=== PATIENT | female | born 1965 | race Two or more races ===

== ENCOUNTER 2020-07-04 21:30 | Observation (INO) | payer MEDICARE, OTHER ==
[~2020-07-04] VITALS: Ht 152.4 cm; Wt 47.3 kg
[2020-07-04 21:58] LABS: BASO % 0 % (0-3); EOS # 0.1 x10^3/uL (0.0-0.7); EOS % 1 % (0-3); HEMOGLOBIN 13.3 g/dL (12.0-15.5); LYMPH # 1.9 x10^3/uL (1.0-4.8); LYMPH % 16 % (24-48); MEAN CORPUSCULAR HEMOGLOBIN 29 pg (25-35); MEAN CORPUSCULAR HGB CONC 33 g/dL (31-37); MEAN CORPUSCULAR VOLUME 87 fL (79-100); MONO # 0.9 x10^3/uL (0.0-1.1); MONO % 8 % (0-9); NEUT # 8.9 x10^3/uL (1.8-7.7); NEUT % 75 % (31-73); PLATELET COUNT 269 x10^3/uL (140-400); RED CELL DISTRIBUTION WIDTH 16.5 % (11.5-14.5); WHITE BLOOD COUNT 11.8 x10^3/uL (4.0-11.0)
[2020-07-04 22:03] LABS: BILIRUBIN,URINE NEGATIVE (NEG); CLARITY,URINE CLEAR; COLOR,URINE YELLOW; NITRITE,URINE NEGATIVE (NEG); PROTEIN,URINE 30 mg/dL (NEG-TRACE); UROBILINOGEN,URINE 0.2 mg/dL (0.2 mg/dL)
[2020-07-04 22:09] LABS: BARBITURATES NEG (NEG); BENZODIAZEPINES NEG (NEG); CANNABINOIDS NEG (NEG); COCAINE NEG (NEG); METHADONE NEG (NEG); OPIATES NEG (NEG); PHENCYCLIDINE NEG (NEG)
[2020-07-04 22:12] LABS: BACTERIA,URINE FEW /HPF (0-FEW)
[2020-07-04 22:14] LABS: ALBUMIN/GLOBULIN RATIO 0.8 (1.0-1.7); CALCIUM 8.8 mg/dL (8.5-10.1); CREATININE 0.9 mg/dL (0.6-1.0); GFR 64.5; TOTAL BILIRUBIN 0.3 mg/dL (0.2-1.0); TOTAL PROTEIN 6.7 g/dL (6.4-8.2)
[2020-07-04 22:16] LABS: AMPHETAMINE/METHAMPHETAMINE POS (NEG)
[2020-07-04 22:19] LABS: PROTHROMBIN TIME PATIENT 11.4 SEC (11.7-14.0)
--- NOTE | 2020-07-04 22:20 | RAD ---
CT head without contrast dated 07/04/2020. No comparison available. CLINICAL INDICATION: Confusion. TECHNIQUE: Contiguous axial imaging the head was performed from skull base to vertex. No contrast administered. One or more of the following individualized dose reduction techniques were utilized for this examination: 1. Automated exposure control 2. Adjustment of the mA and/or kV according to patient size 3. Use of iterative reconstruction technique. FINDINGS: Ventricles and sulci are within normal limits for age. No midline shift or mass effect. Brain parenchyma is of normal attenuation. No hemorrhage or extra-axial collection. Posterior fossa and brainstem unremarkable. Mild mucosal thickening of the ethmoid air cells. Complete opacification of the left mastoid air cells. No acute calvarial abnormality. IMPRESSION: 1. No evidence of acute intracranial hemorrhage or mass. 2. Complete opacification of the left mastoid air cells, nonspecific. Consider acute or chronic mastoiditis. Electronically signed by: Erasmo Greenberg MD (07/04/2020 10:16 PM) [facility]
--- NOTE | 2020-07-04 22:21 | RAD ---
Single view chest dated 07/04/2020: No comparison available. Clinical Indication: Altered mental status. Findings: Single upright portable exam of the chest was performed. Heart size and mediastinal contours are within normal limits given technique. There are some prominent linear markings at the perihilar regions. A more focal area of consolidation in the medial right upper lobe. No apparent pleural effusion. No pneumothorax. Impression:: There is some asymmetric increased density in the right upper lobe which could be related to overlapping bony structures or mass or infiltrate. Suggest a PA and lateral exam for better evaluation. Electronically signed by: Erasmo Greenberg MD (07/04/2020 10:18 PM) [facility]
[2020-07-04] MEDS ORDERED: IV NORMAL SALINE 1000ML BAG 1,000 ML IV ONE ×2 (22:30→23:30)
[2020-07-04] MEDS ORDERED: UNABLE MC (22:32)
[2020-07-04] MEDS ORDERED: NALOXONE 0.4 MG/ML VIAL. IV ONE (22:45)
[2020-07-04] MEDS ORDERED: POTASSIUM CHLORIDE 20MEQ 100 ML IV ONE (23:15)
[2020-07-05] VITALS (7 sets, daily range): BP systolic 83–121; BP diastolic 50–99
--- NOTE | 2020-07-05 00:31 | PHYS DOC ---
Past Medical History Past Medical History: Cancer, Diabetes-Type II Additional Past Medical Histor: LUNG CANCER Past Surgical History: Other Additional Past Surgical Histo: LEFT PARTIAL FOOT AMPUTATION Smoking Status: Unknown if ever smoked Alcohol Use: None Additional Information: DENIES PER FAMILY Social History Narrative: DENIES PER FAMILY General Adult EDM: Chief Complaint: ALTERED MENTAL STATUS HPI: HPI: Patient is 55-year-old female who presents to the emergency room unresponsive. She is unable to provide history. According to EMS her son and seen her 15 minutes prior and then found her passed out in her room. She did have a glucose of 60 upon EMS arrival and they gave her D10. Review of Systems: Review of Systems: Unable to obtain Heart Score: Risk Factors: Risk Factors: DM, Current or recent (<one month) smoker, HTN, HLP, family history of CAD, obesity. Risk Scores: Score 0 - 3: 2.5% MACE over next 6 weeks - Discharge Home Score 4 - 6: 20.3% MACE over next 6 weeks - Admit for Clinical Observation Score 7 - 10: 72.7% MACE over next 6 weeks - Early Invasive Strategies Current Medications: Current Medications Medications (Trade) Dose Ordered Sig/Wyatt Start Time Stop Time Status Last Admin Dose Admin Naloxone HCl (Narcan) 1 mg 1X ONCE 07/04/20 22:45 07/04/20 23:06 DC 07/04/20 21:42 1 MG Potassium Chloride/Water 100 ml @ 50 mls/hr 1X ONCE 07/04/20 23:15 07/05/20 01:14 07/04/20 23:56 50 MLS/HR Sodium Chloride 1,000 ml @ 1,000 mls/hr 1X ONCE 07/04/20 23:30 07/05/20 00:29 07/04/20 23:56 1,000 MLS/HR Allergies: Allergies: Allergies Coded Allergies Type Severity Reaction Last Updated Verified Unable to Assess 07/04/20 No Physical Exam: PE: General: Unresponsive. Well Nourished. Cooperative HEENT: Atraumatic, EOMI, PERRL, airway patent, dry oral mucosa Neck: Supple, trachea midline Respiratory: CTA bilaterally, normal effort, no wheezing/crackles CV: RRR, no murmur, cap refill <2 GI: Soft, nondistended, nontender, no masses MSK: No obvious deformities Skin: Warm, dry, intact Neuro: GCS 7, moves all extremities to pain Current Patient Data: Labs: Laboratory Tests Test 07/04/20 21:41 07/04/20 21:52 07/04/20 22:43 White Blood Count 11.8 x10^3/uL (4.0-11.0) H Red Blood Count 4.60 x10^6/uL (3.50-5.40) Hemoglobin 13.3 g/dL (12.0-15.5) Hematocrit 40.0 % (36.0-47.0) Mean Corpuscular Volume 87 fL (79-100) Mean Corpuscular Hemoglobin 29 pg (25-35) Mean Corpuscular Hemoglobin Concent 33 g/dL (31-37) Red Cell Distribution Width 16.5 % (11.5-14.5) H Platelet Count 269 x10^3/uL (140-400) Neutrophils (%) (Auto) 75 % (31-73) H Lymphocytes (%) (Auto) 16 % (24-48) L Monocytes (%) (Auto) 8 % (0-9) Eosinophils (%) (Auto) 1 % (0-3) Basophils (%) (Auto) 0 % (0-3) Neutrophils # (Auto) 8.9 x10^3/uL (1.8-7.7) H Lymphocytes # (Auto) 1.9 x10^3/uL (1.0-4.8) Monocytes # (Auto) 0.9 x10^3/uL (0.0-1.1) Eosinophils # (Auto) 0.1 x10^3/uL (0.0-0.7) Basophils # (Auto) 0.0 x10^3/uL (0.0-0.2) Prothrombin Time 11.4 SEC (11.7-14.0) L Prothrombin Time INR 0.9 (0.8-1.1) Sodium Level 135 mmol/L (136-145) L Potassium Level 2.0 mmol/L (3.5-5.1) *L Chloride Level 95 mmol/L (98-107) L Carbon Dioxide Level 40 mmol/L (21-32) H Anion Gap 0 (6-14) L Blood Urea Nitrogen 36 mg/dL (7-20) H Creatinine 0.9 mg/dL (0.6-1.0) Estimated GFR (Cockcroft-Gault) 64.5 BUN/Creatinine Ratio 40 (6-20) H Glucose Level 181 mg/dL (70-99) H Lactic Acid Level 2.5 mmol/L (0.4-2.0) H Calcium Level 8.8 mg/dL (8.5-10.1) Total Bilirubin 0.3 mg/dL (0.2-1.0) Aspartate Amino Transferase (AST) 18 U/L (15-37) Alanine Aminotransferase (ALT) 18 U/L (14-59) Alkaline Phosphatase 135 U/L (46-116) H Troponin I Quantitative < 0.017 ng/mL (0.000-0.055) Total Protein 6.7 g/dL (6.4-8.2) Albumin 3.0 g/dL (3.4-5.0) L Albumin/Globulin Ratio 0.8 (1.0-1.7) L Ethyl Alcohol Level < 10 mg/dL (0-10) Urine Collection Type Unknown Urine Color Yellow Urine Clarity Clear Urine pH 7.0 (<5.0-8.0) Urine Specific [place] 1.010 (1.000-1.030) Urine Protein 30 mg/dL (NEG-TRACE) Urine Glucose (UA) 250 mg/dL (NEG) Urine Ketones (Stick) Negative mg/dL (NEG) Urine Blood Negative (NEG) Urine Nitrite Negative (NEG) Urine Bilirubin Negative (NEG) Urine Urobilinogen Dipstick 0.2 mg/dL (0.2 mg/dL) Urine Leukocyte Esterase Negative (NEG) Urine RBC 1-2 /HPF (0-2) Urine WBC 1-4 /HPF (0-4) Urine Squamous Epithelial Cells Few /LPF Urine Bacteria Few /HPF (0-FEW) Urine Mucus Slight /LPF Glucose (Fingerstick) 228 mg/dL (70-99) H 223 mg/dL (70-99) H Urine Opiates Screen Neg (NEG) Urine Methadone Screen Neg (NEG) Urine Barbiturates Neg (NEG) Urine Phencyclidine Screen Neg (NEG) Urine Amphetamine/Methamphetamine Pos (NEG) Urine Benzodiazepines Screen Neg (NEG) Urine Cocaine Screen Neg (NEG) Urine Cannabinoids Screen Neg (NEG) Urine Ethyl Alcohol Neg (NEG) Laboratory Tests 07/04/20 21:41 Laboratory Tests 07/04/20 21:41 Vital Signs: Vital Signs Date Time Temp Pulse Resp B/P (MAP) Pulse Ox O2 Delivery O2 Flow Rate FiO2 07/04/20 23:45 72 12 98 07/04/20 21:31 97.5 128/67 (87) Room Air 97.5 EKG: EKG: [] Radiology/Procedures: Radiology/Procedures: [] Course & Med Decision Making: Course & Med Decision Making Pertinent Labs and Imaging studies reviewed. (See chart for details) Patient is a 55-year-old female with a history of lung cancer who presents to the Emergency Room with altered mental status. On exam, patient has a GCS of 7, intermittently moves all extremities to pain. At this time it is unclear what is causing the patient's altered mental status, however they do not appear to be at their baseline. Differential includes infection, electrolyte imbalance, ACS, stroke, intracranial bleed, polypharmacy, dehydration, dementia, renal failure, drug abuse. Patient does not have hypo-or hyperthermia. No history was provided to suggest seizure with postictal state. Glucose is high upon arrival. At arrival, patient is protecting their airway and does not need to be intubated. There are signs of trauma, however they appear to be several days old. To evaluate the patient's altered mental status, CBC, CMP, UA, troponin, EKG, CT head, drug screen will be ordered. Patient was given Narcan with no response Dragon Disclaimer: Dragon Disclaimer: This electronic medical record was generated, in whole or in part, using a voice recognition dictation system. Departure Departure Impression: Primary Impression: Altered mental status Additional Impression: Hypoglycemia Disposition: ADMITTED INPATIENT Condition: IMPROVED Referrals: NO PCP (PCP) CARLOS MANUEL MAC MD Jul 05, 2020 00:31
[2020-07-05] MEDS ORDERED: NALOXONE 2 MG/2 ML DISP.SYRIN. ONE (02:21)
--- NOTE | 2020-07-05 02:30 | NUR ---
Admit from ED to orth room 206. Alert on arrival to floor. Pleasant. Cooperative. Answers questions appropriately. Orientated to room and POC to include not to get out of bed without assist. Verbalized understanding. Patient reports she uses [facility] on [address] but can not tell me what meds she takes and is poor historian as well. Has Allan Cath in place but explains she uses walker or wheelchair for mobility at home and to go to the restroom. Resting in bed with call light at hand. Bed alarm on.
--- NOTE | 2020-07-05 07:32 | NUR ---
More alert this morning. Diabetic foot ulcer noted to left heel. Patient explains that wound care comes to her home 2 days a week. Photo taken of wound. Cleaned with wound wash and dressed wound with Vaseline gauze secured with an island dressing.
[2020-07-05 09:37] LABS: BASO % 1 % (0-3); EOS # 0.1 x10^3/uL (0.0-0.7); EOS % 2 % (0-3); HEMATOCRIT 39.8 % (36.0-47.0); HEMOGLOBIN 13.5 g/dL (12.0-15.5); LYMPH % 25 % (24-48); MEAN CORPUSCULAR HEMOGLOBIN 30 pg (25-35); MEAN CORPUSCULAR HGB CONC 34 g/dL (31-37); MEAN CORPUSCULAR VOLUME 88 fL (79-100); MONO # 0.7 x10^3/uL (0.0-1.1); MONO % 8 % (0-9); NEUT % 64 % (31-73); PLATELET COUNT 284 x10^3/uL (140-400); RED BLOOD COUNT 4.53 x10^6/uL (3.50-5.40); WHITE BLOOD COUNT 7.9 x10^3/uL (4.0-11.0)
[2020-07-05 09:53] LABS: ALBUMIN 2.6 g/dL (3.4-5.0); ALBUMIN/GLOBULIN RATIO 0.7 (1.0-1.7); CALCIUM 8.6 mg/dL (8.5-10.1); CREATININE 0.8 mg/dL (0.6-1.0); GFR 73.9; TOTAL BILIRUBIN 0.5 mg/dL (0.2-1.0); TOTAL PROTEIN 6.1 g/dL (6.4-8.2)
[2020-07-05 09:59] LABS: POTASSIUM 2.6 mmol/L (3.5-5.1)
[2020-07-05] MEDS ORDERED: POTASSIUM CHLORIDE 20 MEQ TABLET.ER. PO ONE ×2 (10:15→12:00)
[2020-07-05] MEDS ORDERED: CHOL500021 PO (10:37)
[2020-07-05] MEDS ORDERED: INSU100V6 SQ (10:37)
[2020-07-05] MEDS ORDERED: BUME2TAB3 PO (10:37)
[2020-07-05] MEDS ORDERED: MIDO2.5T PO (10:37)
[2020-07-05] MEDS ORDERED: LEVO88TA4 PO (10:37)
[2020-07-05] MEDS ORDERED: GABA-585 PO (10:37)
[2020-07-05] MEDS ORDERED: INSU100I13 SQ (10:37)
[2020-07-05] MEDS ORDERED: ATOR40TA59 PO (10:37)
--- NOTE | 2020-07-05 11:55 | PDOC1 ---
History and Physical Date of Admission Date of Admission 07/05/2020 Identification/Chief Complaint Chief Complaint Altered mental status Source Source: Chart review, Patient History of Present Illness History of Present Illness Patient is a 55-year-old female with past medical history of diabetes type 2 lung cancer left partial foot amputation who apparently was brought to the emergency department by her son who found her passed out in her room. The patient had a recorded glucose of 60 on the field and was given D10.By the time she came to the emergency department her glucose was 181. Patient initially had a GCS of 7 according to the ER physician's note and given that the patient despite the D10 and resolved hypoglycemia was still exhibiting altered mental status she was admitted to her service for further evaluation and treatment. The patient has a left periorbital ecchymosis that is a consequence of a fall that she suffered due to her instability. The patient was assessed by her home nurse and made her primary care physician aware of this event. According to the ER physician notes there seems to be signs of trauma they documented which is consistent with the fall that she suffered. At the time of my note the patient is in no acute distress neurologically intact patient is complaining of pain all over most likely a consequence of her mechanical fall fortunately no she did not suffer any fractures Upon review of her work-up in the emergency department there was a question of an infiltrate on her x-ray which we are going to repeat with a PA and lateral, the patient nevertheless does not give a history compatible with pneumonic process. She has not had pleurisy no fever no sick contacts and the patient has had an increasing cough which is dry secondary to her longstanding history of smoking which she is trying to quit. Reassurance has been provided and all of her concerns were addressed to the best of my abilities patient present time is in no acute distress, plan of care explained in detail. Past Medical History Endocrine: Diabetes Past Surgical History Past Surgical History: Other (Partial left foot amputation) Family History Family History: No Significant Social History Smoke: # pack years (At least 25) ALCOHOL: none Drugs: None Current Problem List Problem List Problems Medical Problems: (1) Altered mental status Status: Acute (2) Hypoglycemia Status: Acute Current Medications Current Medications Current Medications Medications (Trade) Dose Ordered Sig/Wyatt Start Time Stop Time Status Last Admin Dose Admin Atorvastatin Calcium (Lipitor) 40 mg QHS 07/05/20 21:00 Bumetanide (Bumex) 4 mg [id number] 07/05/20 18:00 Ergocalciferol (Vitamin D2) 50,000 unit WEEKLY 07/12/20 09:00 Gabapentin (Neurontin) 100 mg TID 07/05/20 14:00 Insulin Human Lispro (HumaLOG) 10 units [id number] 07/05/20 12:00 Levothyroxine Sodium (Synthroid) 88 mcg [id number] 07/06/20 06:00 Midodrine (Proamatine) 2.5 mg [id number] 07/05/20 16:00 Naloxone HCl (NARCAN 2mg SYRINGE) 2 mg STK-MED ONCE 07/05/20 02:21 07/05/20 02:22 DC Naloxone HCl (Narcan) 1 mg 1X ONCE 07/04/20 22:45 07/04/20 23:06 DC 07/04/20 21:42 1 MG Potassium Chloride/Water 100 ml @ 50 mls/hr 1X ONCE 07/04/20 23:15 07/05/20 01:14 DC 07/04/20 23:56 50 MLS/HR Potassium Chloride (Klor-Con) 20 meq 1X ONCE 07/05/20 12:00 07/05/20 12:01 Sodium Chloride 1,000 ml @ 1,000 mls/hr 1X ONCE 07/04/20 23:30 07/05/20 00:29 DC 07/04/20 23:56 1,000 MLS/HR Allergies Allergies Allergies Coded Allergies Type Severity Reaction Last Updated Verified Unable to Assess 07/04/20 No ROS Review of System CONSTITUTIONAL: No fever or chills EYES: No recent changes SKIN: No rash or itching CARDIOVASCULAR: No chest pain, syncope, palpitations, or edema RESPIRATORY: No SOB or cough GASTROINTESTINAL: No nausea, vomiting or abdominal pain NEUROLOGICAL: No headaches or weakness ENDOCRINE: No cold or heat intolerance GENITOURINARY: No urgency or frequency of urination MUSCULOSKELETAL: No back pain or joint pain LYMPHATICS: No enlarged lymph nodes PSYCHIATRIC: No anxiety or depression Physical Exam Physical Exam GEN.: No apparent distress. Alert and oriented. HEENT: Head is normocephalic, atraumatic NECK: Supple. LUNGS: Clear to auscultation. HEART: RRR, S1, S2 present. Peripheral pulses intact ABDOMEN: Soft, nontender. Positive bowel sounds. EXTREMITIES: Without any cyanosis. NEUROLOGIC: Normal speech, normal tone PSYCHIATRIC: Normal affect, normal mood. SKIN: No ulcerations Vitals Vitals Vital Signs Date Time Temp Pulse Resp B/P (MAP) Pulse Ox O2 Delivery O2 Flow Rate FiO2 07/05/20 10:33 98.8 83 99/60 (73) 96 Room Air 98.8 07/05/20 08:00 2.0 07/05/20 07:00 20 Labs Labs Laboratory Tests Test 07/04/20 21:41 07/04/20 21:52 07/04/20 22:43 07/05/20 08:08 White Blood Count 11.8 x10^3/uL (4.0-11.0) Red Blood Count 4.60 x10^6/uL (3.50-5.40) Hemoglobin 13.3 g/dL (12.0-15.5) Hematocrit 40.0 % (36.0-47.0) Mean Corpuscular Volume 87 fL (79-100) Mean Corpuscular Hemoglobin 29 pg (25-35) Mean Corpuscular Hemoglobin Concent 33 g/dL (31-37) Red Cell Distribution Width 16.5 % (11.5-14.5) Platelet Count 269 x10^3/uL (140-400) Neutrophils (%) (Auto) 75 % (31-73) Lymphocytes (%) (Auto) 16 % (24-48) Monocytes (%) (Auto) 8 % (0-9) Eosinophils (%) (Auto) 1 % (0-3) Basophils (%) (Auto) 0 % (0-3) Neutrophils # (Auto) 8.9 x10^3/uL (1.8-7.7) Lymphocytes # (Auto) 1.9 x10^3/uL (1.0-4.8) Monocytes # (Auto) 0.9 x10^3/uL (0.0-1.1) Eosinophils # (Auto) 0.1 x10^3/uL (0.0-0.7) Basophils # (Auto) 0.0 x10^3/uL (0.0-0.2) Prothrombin Time 11.4 SEC (11.7-14.0) Prothromb Time International Ratio 0.9 (0.8-1.1) Sodium Level 135 mmol/L (136-145) Potassium Level 2.0 mmol/L (3.5-5.1) Chloride Level 95 mmol/L (98-107) Carbon Dioxide Level 40 mmol/L (21-32) Anion Gap 0 (6-14) Blood Urea Nitrogen 36 mg/dL (7-20) Creatinine 0.9 mg/dL (0.6-1.0) Estimated GFR (Cockcroft-Gault) 64.5 BUN/Creatinine Ratio 40 (6-20) Glucose Level 181 mg/dL (70-99) Lactic Acid Level 2.5 mmol/L (0.4-2.0) Calcium Level 8.8 mg/dL (8.5-10.1) Total Bilirubin 0.3 mg/dL (0.2-1.0) Aspartate Amino Transf (AST/SGOT) 18 U/L (15-37) Alanine Aminotransferase (ALT/SGPT) 18 U/L (14-59) Alkaline Phosphatase 135 U/L (46-116) Troponin I Quantitative < 0.017 ng/mL (0.000-0.055) Total Protein 6.7 g/dL (6.4-8.2) Albumin 3.0 g/dL (3.4-5.0) Albumin/Globulin Ratio 0.8 (1.0-1.7) Ethyl Alcohol Level < 10 mg/dL (0-10) Urine Collection Type Unknown Urine Color Yellow Urine Clarity Clear Urine pH 7.0 (<5.0-8.0) Urine Specific [place] 1.010 (1.000-1.030) Urine Protein 30 mg/dL (NEG-TRACE) Urine Glucose (UA) 250 mg/dL (NEG) Urine Ketones (Stick) Negative mg/dL (NEG) Urine Blood Negative (NEG) Urine Nitrite Negative (NEG) Urine Bilirubin Negative (NEG) Urine Urobilinogen Dipstick 0.2 mg/dL (0.2 mg/dL) Urine Leukocyte Esterase Negative (NEG) Urine RBC 1-2 /HPF (0-2) Urine WBC 1-4 /HPF (0-4) Urine Squamous Epithelial Cells Few /LPF Urine Bacteria Few /HPF (0-FEW) Urine Mucus Slight /LPF Glucose (Fingerstick) 228 mg/dL (70-99) 223 mg/dL (70-99) 279 mg/dL (70-99) Urine Opiates Screen Neg (NEG) Urine Methadone Screen Neg (NEG) Urine Barbiturates Neg (NEG) Urine Phencyclidine Screen Neg (NEG) Urine Amphetamine/Methamphetamine Pos (NEG) Urine Benzodiazepines Screen Neg (NEG) Urine Cocaine Screen Neg (NEG) Urine Cannabinoids Screen Neg (NEG) Urine Ethyl Alcohol Neg (NEG) Test 07/05/20 09:15 White Blood Count 7.9 x10^3/uL (4.0-11.0) Red Blood Count 4.53 x10^6/uL (3.50-5.40) Hemoglobin 13.5 g/dL (12.0-15.5) Hematocrit 39.8 % (36.0-47.0) Mean Corpuscular Volume 88 fL (79-100) Mean Corpuscular Hemoglobin 30 pg (25-35) Mean Corpuscular Hemoglobin Concent 34 g/dL (31-37) Red Cell Distribution Width 17.0 % (11.5-14.5) Platelet Count 284 x10^3/uL (140-400) Neutrophils (%) (Auto) 64 % (31-73) Lymphocytes (%) (Auto) 25 % (24-48) Monocytes (%) (Auto) 8 % (0-9) Eosinophils (%) (Auto) 2 % (0-3) Basophils (%) (Auto) 1 % (0-3) Neutrophils # (Auto) 5.0 x10^3/uL (1.8-7.7) Lymphocytes # (Auto) 2.0 x10^3/uL (1.0-4.8) Monocytes # (Auto) 0.7 x10^3/uL (0.0-1.1) Eosinophils # (Auto) 0.1 x10^3/uL (0.0-0.7) Basophils # (Auto) 0.0 x10^3/uL (0.0-0.2) Sodium Level 139 mmol/L (136-145) Potassium Level 2.6 mmol/L (3.5-5.1) Chloride Level 100 mmol/L (98-107) Carbon Dioxide Level 35 mmol/L (21-32) Anion Gap 4 (6-14) Blood Urea Nitrogen 24 mg/dL (7-20) Creatinine 0.8 mg/dL (0.6-1.0) Estimated GFR (Cockcroft-Gault) 73.9 BUN/Creatinine Ratio 30 (6-20) Glucose Level 282 mg/dL (70-99) Lactic Acid Level 1.4 mmol/L (0.4-2.0) Calcium Level 8.6 mg/dL (8.5-10.1) Magnesium Level 1.9 mg/dL (1.8-2.4) Total Bilirubin 0.5 mg/dL (0.2-1.0) Aspartate Amino Transf (AST/SGOT) 15 U/L (15-37) Alanine Aminotransferase (ALT/SGPT) 14 U/L (14-59) Alkaline Phosphatase 135 U/L (46-116) Total Protein 6.1 g/dL (6.4-8.2) Albumin 2.6 g/dL (3.4-5.0) Albumin/Globulin Ratio 0.7 (1.0-1.7) Laboratory Tests Test 07/04/20 21:41 07/04/20 21:52 07/04/20 22:43 07/05/20 08:08 White Blood Count 11.8 x10^3/uL (4.0-11.0) Red Blood Count 4.60 x10^6/uL (3.50-5.40) Hemoglobin 13.3 g/dL (12.0-15.5) Hematocrit 40.0 % (36.0-47.0) Mean Corpuscular Volume 87 fL (79-100) Mean Corpuscular Hemoglobin 29 pg (25-35) Mean Corpuscular Hemoglobin Concent 33 g/dL (31-37) Red Cell Distribution Width 16.5 % (11.5-14.5) Platelet Count 269 x10^3/uL (140-400) Neutrophils (%) (Auto) 75 % (31-73) Lymphocytes (%) (Auto) 16 % (24-48) Monocytes (%) (Auto) 8 % (0-9) Eosinophils (%) (Auto) 1 % (0-3) Basophils (%) (Auto) 0 % (0-3) Neutrophils # (Auto) 8.9 x10^3/uL (1.8-7.7) Lymphocytes # (Auto) 1.9 x10^3/uL (1.0-4.8) Monocytes # (Auto) 0.9 x10^3/uL (0.0-1.1) Eosinophils # (Auto) 0.1 x10^3/uL (0.0-0.7) Basophils # (Auto) 0.0 x10^3/uL (0.0-0.2) Prothrombin Time 11.4 SEC (11.7-14.0) Prothromb Time International Ratio 0.9 (0.8-1.1) Sodium Level 135 mmol/L (136-145) Potassium Level 2.0 mmol/L (3.5-5.1) Chloride Level 95 mmol/L (98-107) Carbon Dioxide Level 40 mmol/L (21-32) Anion Gap 0 (6-14) Blood Urea Nitrogen 36 mg/dL (7-20) Creatinine 0.9 mg/dL (0.6-1.0) Estimated GFR (Cockcroft-Gault) 64.5 BUN/Creatinine Ratio 40 (6-20) Glucose Level 181 mg/dL (70-99) Lactic Acid Level 2.5 mmol/L (0.4-2.0) Calcium Level 8.8 mg/dL (8.5-10.1) Total Bilirubin 0.3 mg/dL (0.2-1.0) Aspartate Amino Transf (AST/SGOT) 18 U/L (15-37) Alanine Aminotransferase (ALT/SGPT) 18 U/L (14-59) Alkaline Phosphatase 135 U/L (46-116) Troponin I Quantitative < 0.017 ng/mL (0.000-0.055) Total Protein 6.7 g/dL (6.4-8.2) Albumin 3.0 g/dL (3.4-5.0) Albumin/Globulin Ratio 0.8 (1.0-1.7) Ethyl Alcohol Level < 10 mg/dL (0-10) Urine Collection Type Unknown Urine Color Yellow Urine Clarity Clear Urine pH 7.0 (<5.0-8.0) Urine Specific [place] 1.010 (1.000-1.030) Urine Protein 30 mg/dL (NEG-TRACE) Urine Glucose (UA) 250 mg/dL (NEG) Urine Ketones (Stick) Negative mg/dL (NEG) Urine Blood Negative (NEG) Urine Nitrite Negative (NEG) Urine Bilirubin Negative (NEG) Urine Urobilinogen Dipstick 0.2 mg/dL (0.2 mg/dL) Urine Leukocyte Esterase Negative (NEG) Urine RBC 1-2 /HPF (0-2) Urine WBC 1-4 /HPF (0-4) Urine Squamous Epithelial Cells Few /LPF Urine Bacteria Few /HPF (0-FEW) Urine Mucus Slight /LPF Glucose (Fingerstick) 228 mg/dL (70-99) 223 mg/dL (70-99) 279 mg/dL (70-99) Urine Opiates Screen Neg (NEG) Urine Methadone Screen Neg (NEG) Urine Barbiturates Neg (NEG) Urine Phencyclidine Screen Neg (NEG) Urine Amphetamine/Methamphetamine Pos (NEG) Urine Benzodiazepines Screen Neg (NEG) Urine Cocaine Screen Neg (NEG) Urine Cannabinoids Screen Neg (NEG) Urine Ethyl Alcohol Neg (NEG) Test 07/05/20 09:15 White Blood Count 7.9 x10^3/uL (4.0-11.0) Red Blood Count 4.53 x10^6/uL (3.50-5.40) Hemoglobin 13.5 g/dL (12.0-15.5) Hematocrit 39.8 % (36.0-47.0) Mean Corpuscular Volume 88 fL (79-100) Mean Corpuscular Hemoglobin 30 pg (25-35) Mean Corpuscular Hemoglobin Concent 34 g/dL (31-37) Red Cell Distribution Width 17.0 % (11.5-14.5) Platelet Count 284 x10^3/uL (140-400) Neutrophils (%) (Auto) 64 % (31-73) Lymphocytes (%) (Auto) 25 % (24-48) Monocytes (%) (Auto) 8 % (0-9) Eosinophils (%) (Auto) 2 % (0-3) Basophils (%) (Auto) 1 % (0-3) Neutrophils # (Auto) 5.0 x10^3/uL (1.8-7.7) Lymphocytes # (Auto) 2.0 x10^3/uL (1.0-4.8) Monocytes # (Auto) 0.7 x10^3/uL (0.0-1.1) Eosinophils # (Auto) 0.1 x10^3/uL (0.0-0.7) Basophils # (Auto) 0.0 x10^3/uL (0.0-0.2) Sodium Level 139 mmol/L (136-145) Potassium Level 2.6 mmol/L (3.5-5.1) Chloride Level 100 mmol/L (98-107) Carbon Dioxide Level 35 mmol/L (21-32) Anion Gap 4 (6-14) Blood Urea Nitrogen 24 mg/dL (7-20) Creatinine 0.8 mg/dL (0.6-1.0) Estimated GFR (Cockcroft-Gault) 73.9 BUN/Creatinine Ratio 30 (6-20) Glucose Level 282 mg/dL (70-99) Lactic Acid Level 1.4 mmol/L (0.4-2.0) Calcium Level 8.6 mg/dL (8.5-10.1) Magnesium Level 1.9 mg/dL (1.8-2.4) Total Bilirubin 0.5 mg/dL (0.2-1.0) Aspartate Amino Transf (AST/SGOT) 15 U/L (15-37) Alanine Aminotransferase (ALT/SGPT) 14 U/L (14-59) Alkaline Phosphatase 135 U/L (46-116) Total Protein 6.1 g/dL (6.4-8.2) Albumin 2.6 g/dL (3.4-5.0) Albumin/Globulin Ratio 0.7 (1.0-1.7) VTE Prophylaxis Ordered VTE Prophylaxis Devices: No VTE Pharmacological Prophylaxi: Yes Assessment/Plan Assessment/Plan Acute metabolic encephalopathy secondary to hypoglycemic event Leukocytosis resolved which may have been reactive Severe hypokalemia Urine drug panel positive for amphetamine methamphetamine Asymptomatic bacteriuria History of lung cancer History of diabetes mellitus type 2 insulin requiring Plan: Continue with her home medications Repeat x-ray PA and lateral Observe 24 hours Fall precautions DVT prophylaxis with Lovenox Hopefully discharge in the a.m. Justifications for Admission Other Justification ROMEL VARGAS MD Jul 05, 2020 11:55
[2020-07-05] MEDS: INSULIN LISPRO 300 UNITS/3 ML VIAL. SQ SCH ×2 (12:20→17:38)
--- NOTE | 2020-07-05 12:31 | NUR ---
SS following for discharge planning. SS reviewed pt chart and discussed with pt RN. Pt is from home and is currently requiring oxygen. Pt positive for Methamphetamines. Low potassium. PAT team referral made for Meth use. Christophe from PAT team coming to assess pt. SS will continue to follow for discharge planning.
--- NOTE | 2020-07-05 13:42 | RAD ---
CHEST PA LATERAL Clinical indications: Possible infiltrate within right upper lobe seen on previous study. COMPARISON: July 04, 2020. Findings: There is a persistent nodular lung infiltrate within the right upper lobe. No pleural effusion or pneumothorax is seen. The heart size, pulmonary vasculature, mediastinum and both mili are unremarkable. The osseous structures appear intact. Impression: Persistent unchanged right upper lobe lung infiltrate. Electronically signed by: Ron Miguel MD (07/05/2020 1:39 PM) [id number]
[2020-07-05] MEDS: GABAPENTIN 100 MG CAPSULE. PO SCH ×2 (14:46→22:09)
--- NOTE | 2020-07-05 15:25 | NUR ---
Wound/Ostomy Care Wound Type/Assessment: Patient seen per wound care consult regarding DFU to left heel. Dressing removed and Wound cleansed, assessed, and measured. Patient states she sees wound care at . Treatment Recommendations/Plan: Recommendations for Hydrofera Blue (left in room), cover with xeroform gauze, and foam dressing. There is tendon exposed. Education provided: Patient educated on dressing changes. Offloading surface/device: N/A Recommended Referrals/Tests: Patient should probably have some imaging and/or vascular consult if staying inpatient. Wound care will have Dr. Arellano see patient tomorrow if able. Discharge Recommendations for dressings: Continue current treatment plan. Dressing change instructions left in room. No other wounds noted. Coccyx is reddened but remains blanchable, calazime applied. Bed lowered and call light in reach.
[2020-07-05] MEDS: MIDODRINE 2.5 MG TABLET PO SCH (16:24)
[2020-07-05] MEDS ORDERED: ACETAMINOPHEN 325 MG TABLET. PO PRN (16:30)
[2020-07-05] MEDS: BUMETANIDE 1 MG TABLET. PO SCH (17:29)
[2020-07-05] MEDS ORDERED: ATORVASTATIN CALCIUM 40 MG TABLET. PO SCH (21:00)
[2020-07-05] MEDS ORDERED: INSULIN LISPRO 300 UNITS/3 ML VIAL. SQ ONE (22:15)
[2020-07-05] MEDS ORDERED: INSULIN GLARGINE SYRINGE. SQ SCH (22:30)
[2020-07-06 02:15] VITALS: BP 109/66
[2020-07-06] MEDS ORDERED: LEVOTHYROXINE 88 MCG TABLET PO SCH (06:00)
[2020-07-06 07:00] VITALS: BP_SYST 115; BP_SYST 84; BP_DIAS 54; BP_DIAS 65
[2020-07-06] MEDS: BUMETANIDE 1 MG TABLET. PO SCH (07:00)
[2020-07-06] MEDS: INSULIN LISPRO 300 UNITS/3 ML VIAL. SQ SCH ×2 (08:00→12:46)
[2020-07-06] MEDS: MIDODRINE 2.5 MG TABLET PO SCH (08:34)
[2020-07-06] MEDS: GABAPENTIN 100 MG CAPSULE. PO SCH (08:35)
--- NOTE | 2020-07-06 10:23 | NUR ---
SS following up with discharge planning. SS reviewed pt chart and discussed with pt RN. Pt is currently on room air. Discharge order on the chart. Pt reported that she had [facility], ; fax [phone], at home. SS contacted [facility] and notified of discharge. SS faxed clinical to [facility] as requested. Pt's RN notified.
[2020-07-06 11:00] VITALS: BP 93/60
--- NOTE | 2020-07-06 11:17 | PDOC3 ---
Discharge Summary Visit Information Date of Admission: Jul 05, 2020 Date of Discharge: Jul 06, 2020 Admitting Diagnosis Comment: Assessment/Plan Acute metabolic encephalopathy secondary to hypoglycemic event Leukocytosis resolved which may have been reactive Severe hypokalemia Urine drug panel positive for amphetamine methamphetamine Asymptomatic bacteriuria History of lung cancer History of diabetes mellitus type 2 insulin requiring Final Diagnosis Problems Medical Problems: (1) Altered mental status Status: Acute (2) Hypoglycemia Status: Acute Acute metabolic encephalopathy secondary to hypoglycemic event Leukocytosis resolved but with persistent infiltrate on x ray Severe hypokalemia replaced Urine drug panel positive for amphetamine methamphetamine Asymptomatic bacteriuria History of lung cancer History of diabetes mellitus type 2 insulin requiring Brief Hospital Course Allergies Allergies Coded Allergies Type Severity Reaction Last Updated Verified No Known Drug Allergies 07/05/20 No Vital Signs Vital Signs Date Time Temp Pulse Resp B/P (MAP) Pulse Ox O2 Delivery O2 Flow Rate FiO2 07/06/20 08:34 80 82/52 07/06/20 07:30 Room Air 07/06/20 07:00 98.5 16 97 98.5 07/05/20 08:00 2.0 Lab Results Laboratory Tests Test 07/04/20 21:41 07/04/20 21:52 07/04/20 22:43 07/05/20 08:08 White Blood Count 11.8 x10^3/uL (4.0-11.0) Red Blood Count 4.60 x10^6/uL (3.50-5.40) Hemoglobin 13.3 g/dL (12.0-15.5) Hematocrit 40.0 % (36.0-47.0) Mean Corpuscular Volume 87 fL (79-100) Mean Corpuscular Hemoglobin 29 pg (25-35) Mean Corpuscular Hemoglobin Concent 33 g/dL (31-37) Red Cell Distribution Width 16.5 % (11.5-14.5) Platelet Count 269 x10^3/uL (140-400) Neutrophils (%) (Auto) 75 % (31-73) Lymphocytes (%) (Auto) 16 % (24-48) Monocytes (%) (Auto) 8 % (0-9) Eosinophils (%) (Auto) 1 % (0-3) Basophils (%) (Auto) 0 % (0-3) Neutrophils # (Auto) 8.9 x10^3/uL (1.8-7.7) Lymphocytes # (Auto) 1.9 x10^3/uL (1.0-4.8) Monocytes # (Auto) 0.9 x10^3/uL (0.0-1.1) Eosinophils # (Auto) 0.1 x10^3/uL (0.0-0.7) Basophils # (Auto) 0.0 x10^3/uL (0.0-0.2) Prothrombin Time 11.4 SEC (11.7-14.0) Prothromb Time International Ratio 0.9 (0.8-1.1) Sodium Level 135 mmol/L (136-145) Potassium Level 2.0 mmol/L (3.5-5.1) Chloride Level 95 mmol/L (98-107) Carbon Dioxide Level 40 mmol/L (21-32) Anion Gap 0 (6-14) Blood Urea Nitrogen 36 mg/dL (7-20) Creatinine 0.9 mg/dL (0.6-1.0) Estimated GFR (Cockcroft-Gault) 64.5 BUN/Creatinine Ratio 40 (6-20) Glucose Level 181 mg/dL (70-99) Lactic Acid Level 2.5 mmol/L (0.4-2.0) Calcium Level 8.8 mg/dL (8.5-10.1) Total Bilirubin 0.3 mg/dL (0.2-1.0) Aspartate Amino Transf (AST/SGOT) 18 U/L (15-37) Alanine Aminotransferase (ALT/SGPT) 18 U/L (14-59) Alkaline Phosphatase 135 U/L (46-116) Troponin I Quantitative < 0.017 ng/mL (0.000-0.055) Total Protein 6.7 g/dL (6.4-8.2) Albumin 3.0 g/dL (3.4-5.0) Albumin/Globulin Ratio 0.8 (1.0-1.7) Ethyl Alcohol Level < 10 mg/dL (0-10) Urine Collection Type Unknown Urine Color Yellow Urine Clarity Clear Urine pH 7.0 (<5.0-8.0) Urine Specific [place] 1.010 (1.000-1.030) Urine Protein 30 mg/dL (NEG-TRACE) Urine Glucose (UA) 250 mg/dL (NEG) Urine Ketones (Stick) Negative mg/dL (NEG) Urine Blood Negative (NEG) Urine Nitrite Negative (NEG) Urine Bilirubin Negative (NEG) Urine Urobilinogen Dipstick 0.2 mg/dL (0.2 mg/dL) Urine Leukocyte Esterase Negative (NEG) Urine RBC 1-2 /HPF (0-2) Urine WBC 1-4 /HPF (0-4) Urine Squamous Epithelial Cells Few /LPF Urine Bacteria Few /HPF (0-FEW) Urine Mucus Slight /LPF Glucose (Fingerstick) 228 mg/dL (70-99) 223 mg/dL (70-99) 279 mg/dL (70-99) Urine Opiates Screen Neg (NEG) Urine Methadone Screen Neg (NEG) Urine Barbiturates Neg (NEG) Urine Phencyclidine Screen Neg (NEG) Urine Amphetamine/Methamphetamine Pos (NEG) Urine Benzodiazepines Screen Neg (NEG) Urine Cocaine Screen Neg (NEG) Urine Cannabinoids Screen Neg (NEG) Urine Ethyl Alcohol Neg (NEG) Test 07/05/20 09:15 07/05/20 11:54 07/05/20 17:30 07/05/20 18:15 White Blood Count 7.9 x10^3/uL (4.0-11.0) Red Blood Count 4.53 x10^6/uL (3.50-5.40) Hemoglobin 13.5 g/dL (12.0-15.5) Hematocrit 39.8 % (36.0-47.0) Mean Corpuscular Volume 88 fL (79-100) Mean Corpuscular Hemoglobin 30 pg (25-35) Mean Corpuscular Hemoglobin Concent 34 g/dL (31-37) Red Cell Distribution Width 17.0 % (11.5-14.5) Platelet Count 284 x10^3/uL (140-400) Neutrophils (%) (Auto) 64 % (31-73) Lymphocytes (%) (Auto) 25 % (24-48) Monocytes (%) (Auto) 8 % (0-9) Eosinophils (%) (Auto) 2 % (0-3) Basophils (%) (Auto) 1 % (0-3) Neutrophils # (Auto) 5.0 x10^3/uL (1.8-7.7) Lymphocytes # (Auto) 2.0 x10^3/uL (1.0-4.8) Monocytes # (Auto) 0.7 x10^3/uL (0.0-1.1) Eosinophils # (Auto) 0.1 x10^3/uL (0.0-0.7) Basophils # (Auto) 0.0 x10^3/uL (0.0-0.2) Sodium Level 139 mmol/L (136-145) Potassium Level 2.6 mmol/L (3.5-5.1) 3.8 mmol/L (3.5-5.1) Chloride Level 100 mmol/L (98-107) Carbon Dioxide Level 35 mmol/L (21-32) Anion Gap 4 (6-14) Blood Urea Nitrogen 24 mg/dL (7-20) Creatinine 0.8 mg/dL (0.6-1.0) Estimated GFR (Cockcroft-Gault) 73.9 BUN/Creatinine Ratio 30 (6-20) Glucose Level 282 mg/dL (70-99) Lactic Acid Level 1.4 mmol/L (0.4-2.0) Calcium Level 8.6 mg/dL (8.5-10.1) Magnesium Level 1.9 mg/dL (1.8-2.4) Total Bilirubin 0.5 mg/dL (0.2-1.0) Aspartate Amino Transf (AST/SGOT) 15 U/L (15-37) Alanine Aminotransferase (ALT/SGPT) 14 U/L (14-59) Alkaline Phosphatase 135 U/L (46-116) Total Protein 6.1 g/dL (6.4-8.2) Albumin 2.6 g/dL (3.4-5.0) Albumin/Globulin Ratio 0.7 (1.0-1.7) Glucose (Fingerstick) 378 mg/dL (70-99) 354 mg/dL (70-99) Test 07/05/20 21:16 07/05/20 23:54 07/06/20 07:39 Glucose (Fingerstick) 483 mg/dL (70-99) 266 mg/dL (70-99) 78 mg/dL (70-99) Laboratory Tests Test 07/05/20 11:54 07/05/20 17:30 07/05/20 18:15 07/05/20 21:16 Glucose (Fingerstick) 378 mg/dL (70-99) 354 mg/dL (70-99) 483 mg/dL (70-99) Potassium Level 3.8 mmol/L (3.5-5.1) Test 07/05/20 23:54 07/06/20 07:39 Glucose (Fingerstick) 266 mg/dL (70-99) 78 mg/dL (70-99) Brief Hospital Course History of Present Illness Patient is a 55-year-old female with past medical history of diabetes type 2 lung cancer left partial foot amputation who apparently was brought to the emergency department by her son who found her passed out in her room. The patient had a recorded glucose of 60 on the field and was given D10.By the time she came to the emergency department her glucose was 181. Patient initially had a GCS of 7 according to the ER physician's note and given that the patient despite the D10 and resolved hypoglycemia was still exhibiting altered mental status she was admitted to her service for further evaluation and treatment. The patient has a left periorbital ecchymosis that is a consequence of a fall that she suffered due to her instability. The patient was assessed by her home nurse and made her primary care physician aware of this event. According to the ER physician notes there seems to be signs of trauma they documented which is consistent with the fall that she suffered. At the time of my note the patient is in no acute distress neurologically intact patient is complaining of pain all over most likely a consequence of her mechanical fall fortunately no she did not suffer any fractures Upon review of her work-up in the emergency department there was a question of an infiltrate on her x-ray which we are going to repeat with a PA and lateral, the patient nevertheless does not give a history compatible with pneumonic process. She has not had pleurisy no fever no sick contacts and the patient has had an increasing cough which is dry secondary to her longstanding history of smoking which she is trying to quit. Reassurance has been provided and all of her concerns were addressed to the best of my abilities patient present time is in no acute distress, plan of care explained in detail. Patient with uneventful hospital stay. The patient did not present any fevers nevertheless she has a persistent infiltrate which we will treat for community acquired pneumonia. Patient also had an x ray of the foot taken ordered by Dr Arellano Patient did not present further hypoglycemic events and was deemed appropriate for discharge. All foreclosures were addressed to the best of my abilities. Signs and symptoms of concerns were addressed and, when to seek medical attention if need be, encouraged to follow up with her primary care physician Discharge Information Condition at Discharge: Improved Follow Up: Weeks Disposition/Orders: D/C to Home Scheduled Atorvastatin Calcium (Atorvastatin Calcium) 40 Mg Tablet, 1 TAB PO QHS for unknown, #90 Ref 3 (Reported) Entered as Reported by: YORDY GERARDO on 07/05/20 1037 Last Taken: Unknown Dose on Unknown Date & Time Last Action: Continued on 07/05/201119 by ROMEL VARGAS MD Bumetanide (Bumetanide) 2 Mg Tablet, 2 TAB PO BID for unknown, #60 Ref 5 (Reported) Entered as Reported by: YORDY GERARDO on 07/05/20 1037 Last Taken: Unknown Dose on Unknown Date & Time Last Action: Converted on 07/05/201119 by ROMEL VARGAS MD Cefdinir (Cefdinir) 300 Mg Capsule, 1 CAP PO BID for pneumonia, #10 Prescribed by: ROMEL VARGAS MD on 07/06/20 1329 Cholecalciferol (Vitamin D3) (D3-50) 50,000 Unit Capsule, 1 CAP PO WEEKLY for unknown for 28 Days, #4 Ref 0 (Reported) Entered as Reported by: YORDY GERARDO on 07/05/20 1037 Last Action: Converted on 07/05/201119 by ROMEL VARGAS MD Gabapentin (Gabapentin ) 100 Mg Capsule, 100 MG PO TID for NEUROGENIC PAIN, (Reported) Entered as Reported by: YORDY GERARDO on 07/05/20 1037 Last Taken: Unknown Dose on Unknown Date & Time Last Action: Continued on 07/05/201119 by ROMEL VARGAS MD Insulin Glargine,Hum.rec.anlog (Lantus Solostar) 100 Unit/1 Ml Insuln.pen, 35 UNIT SQ QHS for diabetes, #15 Ref 3 (Reported) Entered as Reported by: YORDY GERARDO on 07/05/20 1037 Last Taken: Unknown Dose on Unknown Date & Time Last Action: HELD on 07/05/20 1119 by ROMEL VARGAS MD Insulin Lispro (Humalog) 100 Unit/1 Ml Vial, 10 UNIT SQ TIDAC for diabetes, (Reported) Entered as Reported by: YORDY GERARDO on 07/05/20 1037 Last Taken: Unknown Dose on Unknown Date & Time Last Action: Continued on 07/05/201119 by ROMEL VARGAS MD Levothyroxine Sodium (Levothyroxine Sodium) 88 Mcg Tablet, 1 TAB PO DAILY for hypothyroid, #30 Ref 5 (Reported) Entered as Reported by: YORDY GERARDO on 07/05/20 1037 Last Taken: Unknown Dose on Unknown Date & Time Last Action: Continued on 07/05/201119 by ROMEL VARGAS MD Midodrine Hcl (Midodrine Hcl) 2.5 Mg Tablet, 2.5 MG PO BID for unknown, (Reported) Entered as Reported by: YORDY GERARDO on 07/05/20 1037 Last Taken: Unknown Dose on Unknown Date & Time Last Action: Continued on 07/05/201119 by ROMEL VARGAS MD Miscellaneous Medications Info (Unable To Obtain Meds From Prior To Admit) Each, 1 EACH MC, (Reported) Entered as Reported by: INES GRIGGS on 07/04/202231 Last Action: New Order on 07/04/202231 by INES GRIGGS Justicifation of Admission Dx: Justifications for Admission: Justification of Admission Dx: Yes Comments: metabolic encephalopathy ROMEL VARGAS MD Jul 06, 2020 11:17
--- NOTE | 2020-07-06 11:23 | RAD ---
EXAM: FOOT LEFT 3V 07/06/2020 7:45 AM CLINICAL INDICATION:Left heel DFU with exposed tendon COMPARISON:None TECHNIQUE:3 views of the left foot FINDINGS:There are surgical changes of amputation of the forefoot through the base of the metatarsals. Bones are diffusely demineralized. There is some heterogeneous lucency in the posterior calcaneus, indeterminate. No acute fracture. A soft tissue ulcer in the left posterior heel measures 3.7 cm in length and approximately 1 cm in depth. IMPRESSION:Soft tissue ulcer in the posterior heel. There is heterogeneous appearance of the posterior calcaneus deep to the ulcer, which could be due to osteomyelitis or could be due to osteopenia. Electronically signed by: Mickie Jones MD (07/06/2020 11:19 AM) [id number]
[2020-07-06] MEDS ORDERED: CEFD300C PO (13:29)
--- NOTE | 2020-07-06 15:03 | NUR ---
Discharge Note: TRUMAN GOLDSTEIN Discharge instructions and discharge home medications reviewed with Patient and a copy given. All questions have been answered and understanding verbalized. The following instructions and handouts were given: wound care, hypoglycemia, symptoms worsening. Discontinued lines and drains: peripheral iv's discontinued. Patient discharged to home via wheelchair accompanied by family.
--- NOTE | 2020-07-06 15:34 | EKG ---
[facility] [address] [place] [address] Test Date: 2020-07-04 Test Time: 22:42:13 Pat Name: TRUMAN GOLDSTEIN Department: Room: Gender: F [employer]: : 1965 Requested By: CARLOS MANUEL MAC Order Number: [id number] Reading MD: Measurements Intervals [place] Rate: 73 P: 66 IA: 156 QRS: 62 QRSD: 96 T: 73 QT: 444 QTc: 493 Interpretive Statements SINUS RHYTHM LEFT ATRIAL ABNORMALITY QRS(T) CONTOUR ABNORMALITY CONSIDER ANTEROSEPTAL MYOCARDIAL DAMAGE PROLONGED QT ABNORMAL ECG RI6.01 Compared to ECG 07/04/2020 22:40:40 Supraventricular rhythm no longer present Right-axis deviation no longer present T-wave abnormality no longer present
[2020-07-06] MEDS ORDERED: INSULIN GLARGINE SYRINGE. SQ SCH (21:00)
[2020-07-12] MEDS ORDERED: ERGOCALCIFEROL (VITAMIN D2) 50,000 UNIT CAPSULE. PO SCH (09:00)
== END 2020-07-06 15:08 | disposition home or self-care (01) ==
LOC: ER 21:30 → 2 NORTH 07-05 00:01
PROVIDERS: ADMIT Family Medicine; ATTEND Family Medicine
DX: G93.41 Metabolic encephalopathy (principal); E11.649 Type 2 diabetes mellitus with hypoglycemia without coma; D72.829 Elevated white blood cell count, unspecified; E87.6 Hypokalemia; R82.71 Bacteriuria; F17.210 Nicotine dependence, cigarettes, uncomplicated; Z85.118 Personal history of other malignant neoplasm of bronchus and lung; Z98.890 Other specified postprocedural states; Z79.4 Long term (current) use of insulin; Z79.899 Other long term (current) drug therapy
CPT/HCPCS: 36415; 70450; 71045; 71046; 73630; 80053; 80307; 81001; 82962; 83605; 83735; 84132; 84484; 85025; 85610; 93005; 96361; 96365; 96366; 96372; 96375; 99285; 99406; G0378; G0379; G0480; J1815; J2310; J3480; J7030